=== PATIENT | male | born 1985 | race Two or more races ===

== ENCOUNTER 2016-12-01 04:55 | Emergency (ER) | payer OTHER ==
[2016-12-01] MEDS ORDERED: DIPHTH,PERTUSS(ACELL),TET VAC 0.5 ML VIAL IM V ONE (05:12)
== END 2016-12-01 05:32 | disposition home or self-care (01) ==
LOC: ED 04:55
DX: S51.812A Laceration without foreign body of left forearm, initial encounter (principal); Z23 Encounter for immunization; W27.8XXA Contact with other nonpowered hand tool, initial encounter; Y93.89 Activity, other specified; Y92.69 Other specified industrial and construction area as the place of occurrence of the external cause; Y99.0 Civilian activity done for income or pay